=== PATIENT | male | born 1990 | race Caucasian/White ===

== ENCOUNTER 2017-03-13 11:45 | Emergency (ER) | payer OTHER ==
--- NOTE | 2017-03-13 12:02 | PDOC ---
History of Present Illness - General Chief Complaint: Injury Stated Complaint: RT EYELID LACERATION Time Seen by Provider: 03/13/17 11:52 History Source: Patient Exam Limitations: No Limitations - History of Present Illness Initial Comments: 03/13/17 11:59 26 y/o male injured right eye sustaining a laceration over the eyelid. Bleeding controlled. No LOC. UTD with Tetanus. No vision changes. Denies N/C. Was playing basketball and was elbowed in the right eye. Timing/Duration: 1/2 hour Severity: mild Past History - Past Medical History Allergies/Adverse Reactions: Allergies Allergy/AdvReac Type Severity Reaction Status Date / Time No Known Drug Allergies Allergy Verified 03/13/17 11:49 Home Medications: Ambulatory Orders Magnesium mg PO DAILY 03/13/17 Zinc mg PO DAILY 03/13/17 Anemia: No Asthma: No Cancer: No Cardiac Disorders: No CVA: No COPD: No CHF: No Dementia: No Diabetes: No GI Disorders: No Disorders: No HTN: No Hypercholesterolemia: No Liver Disease: No Seizures: No Thyroid Disease: No Other medical history: DENIES - Psycho/Social/Smoking Cessation Hx Anxiety: No Suicidal Ideation: No Smoking History: Current some day smoker Have you smoked in the past 12 months: Yes Number of Cigarettes Smoked Daily: 1 Information on smoking cessation initiated: Yes 'Breaking Loose' booklet given: 03/13/17 Hx Alcohol Use: No Drug/Substance Use Hx: No Substance Use Type: None Review of Systems - Review of Systems Able to Perform ROS?: Yes Is the patient limited Guinean proficient: No Constitutional: No: Chills, Fever HEENTM: No: Eye Pain Respiratory: No: Cough, Shortness of Breath Cardiac (ROS): No: Chest Pain All Other Systems: Reviewed and Negative *Physical Exam - Vital Signs Last Vital Signs Temp Pulse Resp BP Pulse Ox 98.5 F 90 18 122/80 96 03/13/17 11:45 03/13/17 11:45 03/13/17 11:45 03/13/17 11:45 03/13/17 11:45 - Physical Exam General Appearance: Yes: Nourished, Appropriately Dressed HEENT: positive: EOMI, KATJA, Normal ENT Inspection, Pharynx Normal Neck: positive: Trachea midline, Supple Respiratory/Chest: positive: Lungs Clear, Normal Breath Sounds Cardiovascular: positive: Regular Rhythm, Regular Rate, S1, S2 Vascular Pulses: Femoral (R): 4+, Femoral (L): 4+, Carotid (R): 4+, Carotid (L) : 4+, Dorsalis-Pedis (R): 4+, Doralis-Pedis (L): 4+ Gastrointestinal/Abdominal: positive: Normal Bowel Sounds, Soft, Organomegaly Musculoskeletal: positive: Normal Inspection. 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 EOMI, PERRLA neurovascularly intact post procedure ED Treatment Course - ADDITIONAL ORDERS Additional order review: 03/13/17 12:25 Keep wound clean Remove sutures in 5-7 days Ice, Tylenol If worsen return to ER *DC/Admit/Observation/Transfer Diagnosis at time of Disposition: Right eyelid laceration Qualifiers: Encounter type: initial encounter Qualified Code(s): S01.111A - Laceration without foreign body of right eyelid and periocular area, initial encounter - Discharge Dispostion Disposition: HOME Condition at time of disposition: Stable Admit: No - Patient Instructions Printed Discharge Instructions: DI for Laceration Repair Additional Instructions: Ice, Tylenol, rest If worsen return to ER Remove sutures in 5-7 days
[2017-03-13 12:03] VITALS: BP 122/80; PULSE 90; TEMP 98.5; BMI 26.8
== END 2017-03-13 12:30 | disposition home or self-care (01) ==
LOC: FER 11:45
PROC: 08QNXZZ Repair Right Upper Eyelid, External Approach (ICD-10-PCS; principal; 2017-03-13)
DX: S01.111A Laceration without foreign body of right eyelid and periocular area, initial encounter (principal); W50.0XXA Accidental hit or strike by another person, initial encounter; Y93.67 Activity, basketball; Y92.310 Basketball court as the place of occurrence of the external cause; F17.210 Nicotine dependence, cigarettes, uncomplicated
CPT/HCPCS: 12011-25; 99283-25

== ENCOUNTER 2017-03-19 11:54 | Emergency (ER) | payer OTHER ==
[2017-03-19 12:00] VITALS: BP 127/79; PULSE 59; TEMP 98.7; BMI 26.6
--- NOTE | 2017-03-19 12:03 | PDOC ---
Suture Removal/Wound Check HPI - History of Present Illness Chief Complaint: Suture/Staple Removal (other) Stated Complaint: SUTURE REMOVAL Time Seen by Provider: 03/19/17 12:00 History Source: Yes: Patient Exam Limitations: Yes: No Limitations Treated at: [facility] ED - Previous ED Treatment Type of procedure performed on last visit: Yes: Other (suture removal x 4) Tetanus Immunization: Yes: Up to Date - Onset of Previous Treatment Comment:: 03/19/17 12:00 26 yo s/p laceration to right eyebrow one week ago.l had sutures placed, here today for suture removal. no redeness or swelling. no f/c no complaints of headache or confusion. Past History - Past Medical History Allergies/Adverse Reactions: Allergies No Known Drug Allergies Allergy (Verified 03/13/17 11:49) Home Medications: Ambulatory Orders Magnesium mg PO DAILY 03/13/17 Zinc mg PO DAILY 03/13/17 - Immunization History Tetanus Status: Less than 5 years - Social History Smoking Status: Current some day smoker Number of Ciarettes Per Day: 1 Suture Removal/Wound Check PE - Physical Exam Laceration/Wound Check Symptoms: reports: None. denies: Discharge, Bleeding, Numbness, Weakness, Persistent, Worsening Comments: 03/19/17 12:01 no redness, erythema or exudate. sutures CDI Location of Laceration/Wound: right: Eye *Review of Systems - Review of Systems Constitutional: No: Chills, Diaphoresis HEENTM: No: Eye Pain, Blurred Vision Respiratory: No: Cough, Orthopnea Cardiac (ROS): No: Chest Pain ABD/GI: No: Abdominal Distended Integumentary: Yes: Other (suture right eye lid/ brow) All Other Systems: Reviewed and Negative Medical Decision Making - Medical Decision Making 03/19/17 12:02 sutures removed. tolerate well. *DC/Admit/Observation/Transfer Diagnosis at time of Disposition: Encounter for removal of sutures - Discharge Dispostion Disposition: HOME Condition at time of disposition: Stable Admit: No - Patient Instructions Printed Discharge Instructions: DI for Suture Removal Additional Instructions: keep out of sun to reduce swelling you can continue to place bacitracin until scab heals over.
== END 2017-03-19 12:08 | disposition home or self-care (01) ==
LOC: FER 11:54
DX: Z48.02 Encounter for removal of sutures (principal)
CPT/HCPCS: 99281-25